=== PATIENT | female | born 1960 ===

== ENCOUNTER 2017-03-09 17:18 | Emergency (ER) | payer OTHER ==
[2017-03-09 17:18] VITALS: BMI 18.8
[2017-03-09 17:26] VITALS: BP 120/81; PULSE 65; RESP 22; TEMP 97.8; O2SAT 98
--- NOTE | 2017-03-09 18:06 | C.PDOC ---
History Of Present Illness 56 year old patient, with a past medical history of hypertension, presents to the ED complaining of a non-productive cough, sore throat, and runny nose for the past week. Patient notes she had fever and chills in the beginning, but those symptoms resolved. Patient denies abdominal pain, nausea, vomiting, diarrhea, or dysuria. Patient's granddaughter is here with similar symptoms. Time Seen by Provider: 03/09/17 17:38 Chief Complaint (Nursing): Cough, Cold, Congestion History Per: Patient History/Exam Limitations: no limitations Onset/Duration Of Symptoms: Days (1 week) Current Symptoms Are (Timing): Still Present Location Of Pain: Throat Sick Contacts (Context): Family Member(s) (granddaughter) Associated Symptoms: Sore Throat, Cough Ear Symptoms: Bilateral: None Severity: Mild Past Medical History Reviewed: Historical Data, Nursing Documentation, Vital Signs Vital Signs: Last Vital Signs Temp 97.8 F 03/09/17 17:25 Pulse 65 03/09/17 17:25 Resp 22 03/09/17 17:25 BP 120/81 03/09/17 17:25 Pulse Ox 98 03/09/17 19:30 - Medical History PMH: HTN Family History: States: No Known Family Hx - Social History Hx Tobacco Use: No Hx Alcohol Use: No Hx Substance Use: No - Immunization History Hx Tetanus Toxoid Vaccination: No Hx Influenza Vaccination: Yes (2014) Hx Pneumococcal Vaccination: No Review Of Systems Except As Marked, All Systems Reviewed And Found Negative. Constitutional: Negative for: Fever, Chills ENT: Positive for: Nose Discharge, Throat Pain Respiratory: Positive for: Cough (non-productive). Negative for: Shortness of Breath Gastrointestinal: Negative for: Nausea, Vomiting, Abdominal Pain, Diarrhea Genitourinary: Negative for: Dysuria Physical Exam - Physical Exam Appears: Non-toxic, No Acute Distress, Other (comfortable) Skin: Warm, Dry Head: Normacephalic Eye(s): bilateral: Normal Inspection Ear(s): Bilateral: Normal Oral Mucosa: Moist Throat: Erythema (mild), No Exudate, No Drooling, No Other (tonsillar swelling) Neck: Normal ROM, Supple Cardiovascular: Rhythm Regular Respiratory: Normal Breath Sounds, No Rales, No Rhonchi, No Wheezing, Other ( speaking in complete sentences) Back: Normal Inspection Extremity: Normal ROM Neurological/Psych: Oriented x3 Gait: Steady ED Course And Treatment O2 Sat by Pulse Oximetry: 98 (RA) Pulse Ox Interpretation: Normal Progress Note: Patient given PO Sudafed, Tessalon and Tylenol in the ED. She was reassurred that symptoms are likely viral, and that treatment is supportive. She was given Rxs for Sudafed, Tessalon and Tylenol (allergic to NSAIDs). She was instructed to follow up with PMD/clinic in 1-2 days, and she understands she should return to ED if symptoms worsen. Disposition Counseled Patient/Family Regarding: Diagnosis, Need For Followup, Rx Given - Disposition Referrals: [facility] at [facility] [Outside] Disposition: HOME/ ROUTINE Disposition Time: 18:14 Condition: STABLE Additional Instructions: SEGUIMIENTO CON BETH [place] EN 1-2 MARTINEZ USE LOS MEDICAMENTOS QUE CRISTOPHER NECESARIOS DEVUELVA A LA COY DE EMERGENCIA SI LOS SNTOMAS EMPEORARAN Prescriptions: Pseudoephedrine [Sudafed] 60 mg PO Q6 PRN #12 tab PRN Reason: Nasal Congestion Benzonatate [Tessalon Perles] 100 mg PO BID PRN #15 sgl PRN Reason: Cough Acetaminophen [Tylenol 325mg tab] 650 mg PO Q6 PRN #30 tab PRN Reason: pain/fever Instructions: Upper Respiratory Infection (ED), Viral Syndrome (ED) Print Language: CZECH - Clinical Impression Clinical Impression: Viral disease, Upper respiratory infection - Scribe Statement The provider has reviewed the documentation as recorded by the [place] [place] Provider Attestation: All medical record entries made by the Scribe were at my direction and personally dictated by me. I have reviewed the chart and agree that the record accurately reflects my personal performance of the history, physical exam, medical decision making, and the department course for this patient. I have also personally directed, reviewed, and agree with the discharge instructions and disposition.
== END 2017-03-09 18:14 | disposition home or self-care (01) ==
LOC: C.ER 17:18
DX: J06.9 Acute upper respiratory infection, unspecified (principal); B34.9 Viral infection, unspecified

== ENCOUNTER 2017-12-27 18:45 | Emergency (ER) | payer OTHER ==
[2017-12-27 18:46] VITALS: BMI 18.8
[2017-12-27 19:28] VITALS: PULSE 96; RESP 18
[2017-12-27] MEDS ORDERED: Sodium Chloride 0.9% 1,000 ML IV ONE (19:53)
--- NOTE | 2017-12-27 19:55 | C.PDOC ---
History Of Present Illness 57 yo female w/o significant PMHx BIBA for evaluation of bodyaches, weakness, dry cough gradually developed since yesterday. Otherwise, pt denies severe headache, dizziness, neck pain, drooling, CP, dyspnea, SOB, wheezing, palpitation, abd. pain, V/D, UTI sx. At the time of evaluation, pt is comfortable, not in any apparent distress. Time Seen by Provider: 12/27/17 19:38 Chief Complaint (Nursing): Flu-like Symptoms History Per: Patient Onset/Duration Of Symptoms: Gradual Current Symptoms Are (Timing): Still Present Past Medical History Reviewed: Historical Data, Nursing Documentation, Vital Signs Vital Signs: Last Vital Signs Temp 101.9 F H 12/27/17 19:23 Pulse 96 H 12/27/17 19:23 Resp 18 12/27/17 19:23 BP 121/85 12/27/17 19:23 Pulse Ox 100 12/27/17 19:56 - Medical History PMH: HTN (PT DENIES) Denies: Chronic Kidney Disease Surgical History: No Surg Hx Family History: States: Unknown Family Hx - Social History Hx Tobacco Use: No Hx Alcohol Use: No Hx Substance Use: No - Immunization History Hx Tetanus Toxoid Vaccination: No Hx Influenza Vaccination: No (2014) Hx Pneumococcal Vaccination: No Review Of Systems Except As Marked, All Systems Reviewed And Found Negative. Constitutional: Positive for: Fever, Chills, Malaise ENT: Positive for: Nose Discharge, Nose Congestion, Throat Pain. Negative for: Ear Discharge Cardiovascular: Negative for: Chest Pain, Palpitations, Orthopnea, Edema, Light Headedness Respiratory: Positive for: Cough. Negative for: Shortness of Breath, Wheezing Gastrointestinal: Negative for: Nausea, Vomiting, Abdominal Pain, Diarrhea Genitourinary: Negative for: Dysuria Musculoskeletal: Negative for: Neck Pain, Back Pain Skin: Negative for: Rash Neurological: Negative for: Weakness, Numbness, Altered Mental Status, Headache , Dizziness Physical Exam - Physical Exam Appears: Well, Non-toxic, No Acute Distress Skin: Normal Color, Warm, Dry, No Rash Head: Normacephalic Eye(s): bilateral: PERRL Ear(s): Bilateral: Normal Nose: No Flaring, Discharge (scant clear B/L) Oral Mucosa: Moist, No Drooling Tongue: Normal Appearing Lips: Normal Appearing Throat: No Erythema, No Drooling Neck: Trachea Midline, Supple Cardiovascular: Rhythm Regular Respiratory: No Decreased Breath Sounds, No Accessory Muscle Use, No Stridor, No Wheezing Gastrointestinal/Abdominal: Soft, No Tenderness, No Distention, No Guarding Back: No CVA Tenderness Extremity: Normal ROM, No Pedal Edema, No Deformity Neurological/Psych: Oriented x3, Normal Speech ED Course And Treatment - Laboratory Results Result Diagrams: 12/27/17 20:12 12/27/17 20:12 Lab Interpretation: Normal O2 Sat by Pulse Oximetry: 100 Pulse Ox Interpretation: Normal Progress Note: On re-eval, pt is awake,alert, not in any apparent distress. Fever improved, hemodynamicaly stable. Non-toxic. Tolerate Po well in ED. No evidence of dehydration. PulseOx 100% RA. ENT: no acute findings. neck: Supple , (-) meningeal sign. Lungs: CTA B/L, BS equal B/L. CVS: (+)S1S2, reg. Abd: benign. Neurologicaly intact. Blood work review review and appears normal. Pt has clinical findings c/w Influenza-like illness. Pt advised on course of ds. ref. to F/u with PMD in 2-3 days for re-eval. return if any new changes. Disposition Counseled Patient/Family Regarding: Studies Performed, Diagnosis, Need For Followup, Rx Given - Disposition Referrals: [facility] at [facility] [Outside] Disposition: HOME/ ROUTINE Disposition Time: 21:27 Condition: STABLE Additional Instructions: ENCOURAGE FLUIDS TAKE MEDICATION PRESCRIBED FOLLOW UP WITH PMD IN 2-3 DAYS FOR RE-EVALUATION. RETURN TO ED IF ANY WORSENING OR NEW CHANGES. Prescriptions: Acetaminophen [Tylenol 325mg tab] 650 mg PO Q6 #20 tab Oseltamivir Phosphate [Tamiflu] 75 mg PO BID #10 capsule Instructions: Influenza (ED) Forms: [email or web address] (Sinhala), Work Excuse Print Language: TANZANIAN - Clinical Impression Clinical Impression: Influenza-like illness
[2017-12-27] MEDS ORDERED: Sodium Chloride 0.9% 1,000 ML ONE (20:14)
[2017-12-27 20:15] LABS: BASO % 0.6 % (0.0-2.0); EOS % 0.4 % (0.0-4.0); HEMOGLOBIN 14.5 g/dL (11.0-16.0); LYMPH # 1.1 K/uL (1.0-4.3); LYMPH % 17.4 % (20.0-40.0); MEAN CELL VOLUME 77.7 fL (81.0-99.0); MEAN CORPUSCULAR HEMOGLOBIN 26.5 pg (27.0-31.0); MEAN CORPUSCULAR HGB CONC 34.1 g/dL (33.0-37.0); MEAN PLATELET VOLUME 8.4 fL (7.2-11.7); MONO % 15.5 % (0.0-10.0); NEUT # 4.1 K/uL (1.8-7.0); NEUT % 66.1 % (50.0-75.0); NRBC % 0.2 % (0.0-2.0); RBC 5.49 Mil/uL (3.80-5.20); RED CELL DISTRIBUTION WIDTH 14.8 % (11.5-14.5); WHITE BLOOD COUNT 6.2 K/uL (4.8-10.8)
[2017-12-27 20:28] LABS: CALCIUM 10.3 mg/dl (8.6-10.4); GFR AFRICAN-AMERICAN > 60; GFR NON-AFRICAN AMERICAN > 60
[2017-12-27 20:30] LABS: BLOOD UREA NITROGEN 8 mg/dL (7-17)
[2017-12-27 21:32] VITALS: BP 104/66; TEMP 98.4
[2017-12-27 21:33] VITALS: O2SAT 100
--- NOTE | 2017-12-28 12:30 | RAD ---
HISTORY: SOB COMPARISON: Comparison made with prior chest radiograph dated 05/21/2016. TECHNIQUE: Chest PA and lateral FINDINGS: LUNGS: No acute consolidation. Previously noted vague small nodular density right lateral upper lung field is less well seen on this study compared to the prior exam. PLEURA: No significant pleural effusion identified. No pneumothorax apparent. CARDIOVASCULAR: Heart size within range of normal. TheNormal. OSSEOUS STRUCTURES: Mild multilevel degenerative spondylosis of the thoracic spine. VISUALIZED UPPER ABDOMEN: Normal. OTHER FINDINGS: None. IMPRESSION: No acute consolidation. Previously noted small nodular density that seen along the right lateral upper lung zone not appreciated on this exam.
== END 2017-12-27 21:36 | disposition home or self-care (01) ==
LOC: C.ER 18:45
DX: J11.1 Influenza due to unidentified influenza virus with other respiratory manifestations (principal)
CPT/HCPCS: 71046; 80048; 85025; 87804; 96361; 96374; 99283; J2405; J7040

== ENCOUNTER 2018-11-10 11:02 | Emergency (ER) | payer OTHER ==
[2018-11-10 11:03] VITALS: BMI 18.8
[2018-11-10 11:26] VITALS: O2SAT 100
--- NOTE | 2018-11-10 11:30 | C.PDOC ---
History Of Present Illness 58 yo female w/o significant PMHx come in for evaluation of bodyaches, chills, nasal congestion, dry cough, abdominal pain, nausea, one episode of non-bilious, non-bloody vomiting gradually developed for past 2 days. Otherwise, pt denies lethargy, severe headache, dizziness, neck pain, drooling, CP, dyspnea, SOB, wheezing, palpitation, hematemesis, melena, UTI sx. At the time of evaluation, pt appears in pain. Time Seen by Provider: 11/10/18 11:21 Chief Complaint (Nursing): Flu-like Symptoms History Per: Patient Past Medical History Reviewed: Historical Data, Nursing Documentation, Vital Signs Vital Signs: Last Vital Signs Temp 100.1 F H 11/10/18 11:07 Pulse 96 H 11/10/18 11:07 Resp 18 11/10/18 11:07 BP 170/96 H 11/10/18 11:07 Pulse Ox 100 11/10/18 11:07 - Medical History PMH: HTN (PT DENIES) Denies: Chronic Kidney Disease Family History: States: Unknown Family Hx - Social History Hx Tobacco Use: No Hx Alcohol Use: No Hx Substance Use: No - Immunization History Hx Tetanus Toxoid Vaccination: No Hx Influenza Vaccination: No (2014) Hx Pneumococcal Vaccination: No Review Of Systems Except As Marked, All Systems Reviewed And Found Negative. Constitutional: Positive for: Fever, Chills, Malaise Eyes: Negative for: Vision Change ENT: Negative for: Ear Discharge, Nose Discharge Cardiovascular: Negative for: Chest Pain, Palpitations Respiratory: Negative for: Cough, Shortness of Breath, Wheezing Gastrointestinal: Positive for: Vomiting, Abdominal Pain. Negative for: Diarrhea Genitourinary: Negative for: Dysuria, Incontinence Musculoskeletal: Negative for: Neck Pain, Back Pain Neurological: Negative for: Altered Mental Status Physical Exam - Physical Exam Appears: Well, Non-toxic, No Acute Distress Skin: Normal Color, Warm, Dry Head: Normacephalic Eye(s): bilateral: PERRL Ear(s): Bilateral: Normal Nose: Discharge (B/L nasla congestion with scant clear rhinorrhea) Oral Mucosa: Moist Throat: No Erythema, No Drooling Neck: Trachea Midline, Supple Cardiovascular: Rhythm Regular, No Murmur, No JVD Respiratory: No Decreased Breath Sounds, No Accessory Muscle Use, No Stridor, No Wheezing Gastrointestinal/Abdominal: Soft, Tenderness (mild epigastric), No Distention, No Guarding, No Rebound Back: No CVA Tenderness Extremity: Normal ROM, No Pedal Edema, No Deformity, No Swelling Neurological/Psych: Oriented x3, Normal Speech ED Course And Treatment - Laboratory Results Result Diagrams: 11/10/18 11:45 11/10/18 13:11 Lab Interpretation: No Acute Changes O2 Sat by Pulse Oximetry: 100 Pulse Ox Interpretation: Normal - Radiology CXR: Interpreted by Me, Viewed By Me CXR Interpretation: Yes: No Acute Disease Progress Note: Pt was OBS in ED for 2 hours and remained stable during the ED evaluation. Pt appears more comfortable, reports mod improvement in sx. On re-eval, afebrile, hemodynamicaly stable. non-toxic, tolerate Po well in Ed. PulsEOx 100% RA. ENT: no acute findings. Neck: SUpple, (-) meningeal sign. Lungs: CTA B/L, BS equal B/L. CVS: (+) S1S2, reg. Abd: benign, (-) guarding, (-) rebound. Neurologicaly intact. Blood work review and appears without acute abnormalities. CXR- normal study. Pt christensen sclinical findings c/w N/V, mild epigastric pian, r/o viral illness. Pt advised. ref. to f/u with PMD in 1-2 days for re-eavl. return to ED if any worsening or new changes. Disposition Counseled Patient/Family Regarding: Studies Performed, Diagnosis, Need For Followup, Rx Given - Disposition Referrals: [facility] at [facility] [Outside] Disposition: HOME/ ROUTINE Disposition Time: 12:55 Condition: STABLE Additional Instructions: Encourage fluids Take medication as prescribed Follow up with PMD in 2-3 days for re-evaluation. return to ED if any worsening or new changes. Prescriptions: Ondansetron ODT [Zofran ODT] 1 odt PO BID PRN #6 odt PRN Reason: Nausea/Vomiting Oseltamivir Phosphate [Tamiflu] 75 mg PO BID #10 capsule Instructions: Nausea and Vomiting, Adult, Viral Syndrome (DC) Forms: [email or web address] (Slovak) Print Language: ALBANIAN - Clinical Impression Clinical Impression: Viral disease, Vomiting
[2018-11-10] MEDS ORDERED: Sodium Chloride 0.9% 1,000 ML IV ONE (11:35)
[2018-11-10] MEDS ORDERED: Sodium Chloride 0.9% 1,000 ML ONE (11:43)
[2018-11-10 11:58] LABS: BASO # 0.1 K/uL (0.0-0.2); EOS % 0.7 % (0.0-4.0); HEMOGLOBIN 14.4 g/dL (11.0-16.0); LYMPH # 0.5 K/uL (1.0-4.3); MEAN CELL VOLUME 79.1 fL (81.0-99.0); MEAN CORPUSCULAR HEMOGLOBIN 26.4 pg (27.0-31.0); MEAN CORPUSCULAR HGB CONC 33.4 g/dL (33.0-37.0); MONO # 0.9 K/uL (0.0-0.8); MONO % 16.4 % (0.0-10.0); NEUT # 3.7 K/uL (1.8-7.0); NEUT % 71.9 % (50.0-75.0); NRBC % 0.2 % (0.0-2.0); RBC 5.46 Mil/uL (3.80-5.20); RED CELL DISTRIBUTION WIDTH 14.7 % (11.5-14.5); WHITE BLOOD COUNT 5.2 K/uL (4.8-10.8)
--- NOTE | 2018-11-10 12:14 | RAD ---
Date of service: 11/10/2018 PROCEDURE: CHEST RADIOGRAPH, 1 VIEW HISTORY: SOB COMPARISON: 12/27/2017 FINDINGS: LUNGS: Clear. PLEURA: No pneumothorax or pleural fluid seen. CARDIOVASCULAR: No aortic atherosclerotic calcification present. Normal. OSSEOUS STRUCTURES: No significant abnormalities. VISUALIZED UPPER ABDOMEN: Normal. OTHER FINDINGS: None. IMPRESSION: No active disease.
[2018-11-10 12:15] LABS: INR 1.2; PROTHROMBIN TIME 13.4 SECONDS (9.7-12.2)
[2018-11-10 13:30] LABS: ALB/GLOB RATIO 1.3 (1.0-2.1); ALBUMIN 4.1 g/dL (3.5-5.0); ALT/SGPT 34 U/L (9-52); AST/SGOT 32 U/L (14-36); BLOOD UREA NITROGEN 9 mg/dL (7-17); CALCIUM 8.7 mg/dl (8.6-10.4); GFR NON-AFRICAN AMERICAN > 60
[2018-11-10 14:09] VITALS: BP 133/84; PULSE 91; RESP 14; TEMP 98.5
[2018-11-10 14:15] LABS: SQUAMOUS EPITHIAL 3 /hpf (0-5); URINE BACTERIA RARE (<OCC); URINE BILIRUBIN NEGATIVE (NEGATIVE); URINE BLOOD 1+ (NEGATIVE); URINE CLARITY Clear (Clear); URINE COLOR Straw (YELLOW); URINE GLUCOSE (UA) NORMAL (Normal); URINE LEUKOCYTE ESTERASE 1+ Leu/uL (Negative); URINE PROTEIN NEGATIVE (NEGATIVE); URINE UROBILINOGEN NORMAL mg/dL (0.2-1.0)
== END 2018-11-10 14:41 | disposition home or self-care (01) ==
LOC: C.ER 11:02
DX: B34.9 Viral infection, unspecified (principal); R11.10 Vomiting, unspecified
CPT/HCPCS: 71045; 80053; 81001; 85025; 85610; 85730; 87040; 87086; 87804; 96374; 99284; J7030